=== PATIENT | female | born 1995 | race Caucasian/White ===

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

== ENCOUNTER 2017-03-04 22:13 | Emergency (ER) | payer BC ==
[~2017-03-04] VITALS: Ht 162.6 cm; Wt 55.7 kg
[~2017-03-04 22:13] MED LIST changes: -ALBINS/ INH; -CEPH500C PO; -IBUP-1050 PO; -ONDA4TAB10 SL; -OXYC-57 PO
[2017-03-04 22:23] VITALS: BP 110/75; PULSE 67; TEMP 36.7; O2SAT 95; Ht 162.6 cm; Wt 55.7 kg
[2017-03-04] MEDS ORDERED: ONDANSETRON 4MG OD TAB PO STA (23:22)
--- NOTE | 2017-03-04 23:37 | EMERGENCY ROOM VISIT NOTE ---
History Report prepared by Ky: Shad Rizo Under the Supervision of: Dr. Celestino Chan D.O. First contact with patient: 22:26 Chief Complaint: ABDOMINAL PAIN Stated Complaint: ABD PAIN Nursing Triage Summary: Pt complains of left sided abominal pain. It started at 6pm. +nausea History of Present Illness The patient is a 21 year old female who presents to the Emergency Room with complaints of left flank and abdominal pain starting around 1800 tonight which resolved about 10 minutes ago. The patient rated her pain a 7.5/10 in severity. She states that eating and drinking made the pain worse. She states that she is nauseous, though she denies any vomiting, diarrhea, constipation, fevers, chills , vaginal discharge, and urinary symptoms. The patient states that her last period was a week ago, and she had two this month. She has a history of asthma and eczema. Source of History: patient Onset: 1800 Position: abdomen (left), other (left flank) Symptom Intensity: 7.5/10 Timing: resolved Associated Symptoms: + nausea, No fevers, No chills, No vomiting, No diarrhea, No urinary symptoms Review of Systems See HPI for pertinent positives & negatives. A total of 10 systems reviewed and were otherwise negative. Past Medical & Surgical Medical Problems: (1) Asthma (2) Pneumonia Social History Smoking Status: Never Smoker Drug Use: none Marital Status: single Housing Status: lives with family Occupation Status: student Current/Historical Medications Scheduled PRN Albuterol Sulf (Proventil 0.083% 2.5MG/3ML), 2.5 MG INH Q4H PRN for SOB/Wheezing Ibuprofen (Advil), 200-600 MG PO Q4H PRN for Pain or Fever Allergies Coded Allergies: Iodinated Diagnostic Agents (Verified Allergy, Severe, FATAL FAMILY HISTORY, 03/04/17) Nut Tree (Verified Allergy, Severe, ANAPHYLAXIS, 03/04/17) Physical Exam Vital Signs Date Time Temp Pulse Resp B/P (MAP) Pulse Ox O2 Delivery O2 Flow Rate FiO2 03/04/17 22:23 36.7 67 16 110/75 95 Room Air Physical Exam CONSTITUTIONAL/VITAL SIGNS: Reviewed / noted above. GENERAL: Non-toxic in appearance. INTEGUMENTARY: Warm, dry, and [place]. HEAD: Normocephalic. EYES: without scleral icterus or trauma. ENT/OROPHARYNX: clear and moist. LYMPHADENOPATHY/NECK: Is supple without lymphadenopathy or meningismus. RESPIRATORY: Lungs clear and equal. CARDIOVASCULAR: Regular rate and rhythm. GI/ABDOMEN: Soft and nontender. No organomegaly or pulsatile mass. No rebound or guarding. Normal bowel sounds. EXTREMITIES: Warm and well perfused. BACK: No CVA tenderness. NEUROLOGICAL: Intact without focal deficits. PSYCHIATRIC: normal affect. MUSCULOSKELETAL: Normally developed with good muscle tone. Medical Decision & Procedures Laboratory Results Test 03/04/17 23:24 Laboratory results as stated above per my review. Medications Administered Medications (Trade) Dose Ordered Sig/Tabitha Route Start Time Stop Time Status Last Admin Dose Admin Ondansetron HCl (Zofran Odt) 4 mg NOW STAT PO 03/04/17 23:22 03/04/17 23:24 DC 03/04/17 23:36 4 MG ED Course 2310: Previous medical records were reviewed. The patient was evaluated in room B12. A complete history and physical examination was performed. 2322: Zofran ODT 4mg PO 2338: On reevaluation, the patient is doing well. I discussed the results and findings with the patient. She verbalized agreement of the treatment plan. She was discharged home. Medical Decision Differential considered: pancreatitis, hepatitis, acute cholecystitis, AAA, UTI , pyelonephritis, kidney stones, appendicitis, diverticulitis, shingles, bowel obstruction, mesenteric ischemia, intussusception,hernia, ovarian torsion, ruptured ovarian cyst,ectopic , . This is a 21-year-old female who presents to the ED with a chief complaint of abdominal pain. The patient states that her abdominal pain started around 6 PM. It actually was in the left flank/left side the abdomen when it started. She stated that she cannot get herself comfortable. She was moving around writhing in pain. She states that it was 7 out of 10. About 10 minutes after arriving here, the patient states that [place] symptoms of pain completely resolved. She had a little residual nausea. Her exam was normal. Urine revealed trace leukocytes and trace protein. test was negative. The patient was told the results the test. Because her symptoms have resolved, the family and patient elected to go home at this point. They will return if necessary if symptoms return. Urine strainer sent with patient. Impression Primary Impression: Acute left flank pain Scribe Attestation The scribe's documentation has been prepared under my direction and personally reviewed by me in its entirety. I confirm that the note above accurately reflects all work, treatment, procedures, and medical decision making performed by me. Departure Information Dispostion Home / Self-Care Referrals Tony Grady M.D. (PCP) Forms HOME CARE DOCUMENTATION FORM, IMPORTANT VISIT INFORMATION Patient Instructions My [facility] Additional Instructions Follow-up with your doctor for further care and evaluation in 1-2 days. Return to the emergency department for worsening or new symptoms or any concerns. You have been examined and treated today on an emergency basis only. This is not a substitute for, or an effort to provide, complete comprehensive medical care. It is impossible to recognize and treat all injuries or illnesses in a single emergency department visit. It is therefore important that you follow up closely with your doctor. Call as soon as possible for an appointment. Strain urine for stone for next 24 hours.
[2017-03-05 00:08] LABS: URINE APPEARANCE CLEAR (CLEAR); URINE BILIRUBIN NEG (NEG); URINE COLOR YELLOW; URINE NITRITE NEG (NEG); URINE PH 6.5 (4.5-7.5); URINE SPECIFIC GRAVITY 1.025 (1.000-1.030); UROBILINOGEN NEG (NEG); ZZUR CULT IF INDIC CLEAN CATCH NO
[2017-03-05 00:18] LABS: MANUAL MICROSCOPIC REQUIRED? NO; REVIEW REQ? NO
== END 2017-03-04 23:48 | disposition home or self-care (01) ==
LOC: C.EDB 22:14
DX: R10.30 Lower abdominal pain, unspecified (principal); J45.909 Unspecified asthma, uncomplicated; Z91.018 Allergy to other foods; Z91.041 Radiographic dye allergy status

== ENCOUNTER 2017-03-08 19:16 | Emergency (ER) | payer BC ==
[~2017-03-08] VITALS: Ht 162.6 cm; Wt 56.2 kg
[2017-03-08 19:20] VITALS: TEMP 37.7; Ht 162.6 cm; Wt 56.2 kg
--- NOTE | 2017-03-08 19:40 | EMERGENCY ROOM VISIT NOTE ---
History Report prepared by Ky: Tamika Cohn Under the Supervision of: Dr. Celestino Hodgson M.D. First contact with patient: 19:32 Chief Complaint: NAUSEA Stated Complaint: NAUSEA,SWEATS,CHILLS,ACHES History of Present Illness The patient is a 21 year old female who presents to the Emergency Room with complaints of persistent nausea for the past few days. She is accompanied by her Father. She reports she has felt nauseous for the past couple of days, but after class this afternoon she vomited several times. She also complains of pain in her bilateral flank area as well as lower abdominal pain and generalized body aches, rating her pain as a 5/10 in severity. She denies any recent hematuria or dysuria. She notes she has been experiencing the chills, diaphoresis and the patient is febrile on exam. She was seen here in the ED this past Saturday, 5 days ago, for flank pain and was diagnosed with a kidney stone. 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 A total of 10 systems reviewed and were otherwise negative. Past Medical & Surgical Medical Problems: (1) Asthma (2) Pneumonia Social History Smoking Status: Never Smoker Alcohol Use: occasionally Drug Use: none Marital Status: single Housing Status: lives with family Occupation Status: student Current/Historical Medications Scheduled Cephalexin Monohydrate (Keflex), 1 CAP PO BID Ondasetron Odt (Zofran Odt), 4 MG SL Q6H Scheduled PRN Albuterol Sulf (Proventil 0.083% 2.5MG/3ML), 2.5 MG INH Q4H PRN for SOB/Wheezing Ibuprofen (Advil), 200-600 MG PO Q4H PRN for Pain or Fever Oxycodone/Acetaminophen 5MG/325MG (Percocet 5MG/325MG), 1-2 TAB PO Q4H PRN for Pain Allergies Coded Allergies: Iodinated Diagnostic Agents (Verified Allergy, Severe, FATAL FAMILY HISTORY, 03/04/17) Nut Tree (Verified Allergy, Severe, ANAPHYLAXIS, 9/18/17) Physical Exam Vital Signs Date Time Temp Pulse Resp B/P (MAP) Pulse Ox O2 Delivery O2 Flow Rate FiO2 03/08/17 22:47 104 18 100/61 100 Room Air 03/08/17 20:52 96 18 91/47 98 Room Air 03/08/17 20:01 105 03/08/17 19:20 37.7 126 18 114/78 99 Room Air Physical Exam GENERAL: Patient is a healthy-appearing well-nourished 21 year old female. HEAD: Normocephalic atraumatic EYES: Ocular movements intact pupils equal and react to light OROPHARYNX mucous membranes are moist no exudates present no erythema or edema present NECK: Supple no nuchal rigidity CHEST: Good equal expansion LUNGS: Clear and equal to auscultation CARDIAC: Normal S1 and S2 ABDOMEN: Soft, tender in the RLQ, no guarding BACK: No CVA tenderness EXTREMITIES: No pain upon palpation normal muscle strength in all groups no clubbing cyanosis or edema NEURO: Patient is following commands is answering questions appropriately. Alert and oriented x3 Cranial Nerves 2-12 grossly intact Medical Decision & Procedures ER Provider Diagnostic Interpretation: Radiology results as stated below per my review and radiologist interpretation: CHEST ONE VIEW PORTABLE CLINICAL HISTORY: Pt c/o SOB dyspnea COMPARISON STUDY: 03/15/2014 FINDINGS: The bones soft tissues and hemidiaphragms are normal. The cardiomediastinal silhouette is normal. The lungs are clear. The pulmonary vasculature is normal. IMPRESSION: Negative chest. The above report was generated using voice recognition software. It may contain grammatical, syntax or spelling errors. Electronically signed by: Kameron Quinn M.D. 03/08/2017 8:20 PM ABDOMEN LIMITED (US) HISTORY: Pain Pt c/o RLQ abd pain, r/o appendicitis. COMPARISON: None. FINDINGS: Nonvisualization of the appendix. No evidence for collection or abscess bile sent criteria IMPRESSION: The appendix is not identified. The above report was generated using voice recognition software. It may contain grammatical, syntax or spelling errors. Electronically signed by: Kameron Quinn M.D. 03/08/2017 8:58 PM (RENAL)RETROPERITONEA COMP HISTORY: Flank pain Pt c/o RT sided flank pain COMPARISON: None. FINDINGS: Right kidney: Maximum dimension 9.7 cm. No evidence for hydronephrosis. Normal corticomedullary differentiation and cortical thickness. 3 mm nonobstructing cortical calcification Left kidney: Maximum dimension 10.0 cm. No evidence for hydronephrosis. Normal corticomedullary differentiation and cortical thickness. Bladder: No bladder wall thickening. The bilateral ureteral jets were identified. IMPRESSION: Normal renal ultrasound. 3 mm nonobstructing right renal cortical calcification The above report was generated using voice recognition software. It may contain grammatical, syntax or spelling errors. Electronically signed by: Kameron Quinn M.D. 03/08/2017 8:59 PM PELVIC COMPLETE NON OB CLINICAL HISTORY: Pt c/o B/l ovarian pain PAIN COMPARISON STUDY: FINDINGS: The uterus measured 6.8 cm. The endometrial stripe measured 8 mm. The right ovary measured 4.0 cm with normal vascular flow. The left ovary measured 4.2 cm with normal vascular flow. 2.5 cm ovarian cyst.. There is no ultrasonographic evidence of ovarian torsion. It should be noted that ovarian torsion can be present with normal Doppler ultrasonographic findings. There was no evidence of pathologic free pelvic fluid. IMPRESSION: 2.5 cm left ovarian cyst. Otherwise negative pelvic ultrasound The above report was generated using voice recognition software. It may contain grammatical, syntax or spelling errors. Electronically signed by: Kameron Quinn M.D. 03/08/2017 9:57 PM Laboratory Results 03/08/17 19:54 Red Blood Count 4.91, Mean Corpuscular Volume 88.8, Mean Corpuscular Hemoglobin 31.2, Mean Corpuscular Hemoglobin Concent 35.1, Mean Platelet Volume 9.7, Neutrophils (%) (Auto) 89.4, Lymphocytes (%) (Auto) 5.5, Monocytes (%) (Auto) 3.3, Eosinophils (%) (Auto) 1.5, Basophils (%) (Auto) 0.1, Neutrophils # (Auto) 8.38, Lymphocytes # (Auto) 0.52, Monocytes # (Auto) 0.31, Eosinophils # (Auto) 0.14, Basophils # (Auto) 0.01 03/08/17 19:54 Test 03/08/17 19:50 03/08/17 19:54 03/08/17 20:55 Influenza Type A (RT-PCR) Neg for Influ A (NEG) Influenza Type A Antigen Neg for Influ A (NEG) Influenza Type B Antigen Neg for Influ B (NEG) Influenza Type B (RT-PCR) Neg for Influ B (NEG) White Blood Count 9.38 K/uL (4.8-10.8) Red Blood Count 4.91 M/uL (4.2-5.4) Hemoglobin 15.3 g/dL (12.0-16.0) Hematocrit 43.6 % (37-47) Mean Corpuscular Volume 88.8 fL (80-100) Mean Corpuscular Hemoglobin 31.2 pg (25-34) Mean Corpuscular Hemoglobin Concent 35.1 g/dl (32-36) Platelet Count 236 K/uL (130-400) Mean Platelet Volume 9.7 fL (7.4-10.4) Neutrophils (%) (Auto) 89.4 % Lymphocytes (%) (Auto) 5.5 % Monocytes (%) (Auto) 3.3 % Eosinophils (%) (Auto) 1.5 % Basophils (%) (Auto) 0.1 % Neutrophils # (Auto) 8.38 K/uL (1.4-6.5) Lymphocytes # (Auto) 0.52 K/uL (1.2-3.4) Monocytes # (Auto) 0.31 K/uL (0.11-0.59) Eosinophils # (Auto) 0.14 K/uL (0-0.5) Basophils # (Auto) 0.01 K/uL (0-0.2) RDW Standard Deviation 39.7 fL (36.4-46.3) RDW Coefficient of Variation 12.5 % (11.5-14.5) Immature Granulocyte % (Auto) 0.2 % Immature Granulocyte # (Auto) 0.02 K/uL (0.00-0.02) Anion Gap 7.0 mmol/L (3-11) Est Creatinine Clear Calc Drug Dose 104.2 ml/min Estimated GFR () 133.9 Estimated GFR (Non- 115.6 BUN/Creatinine Ratio 14.2 (10-20) Calcium Level 9.2 mg/dl (8.5-10.1) Total Bilirubin 0.4 mg/dl (0.2-1) Direct Bilirubin < 0.1 mg/dl (0-0.2) Aspartate Amino Transf (AST/SGOT) 15 U/L (15-37) Alanine Aminotransferase (ALT/SGPT) 18 U/L (12-78) Alkaline Phosphatase 52 U/L (45-117) Total Protein 8.5 gm/dl (6.4-8.2) Albumin 4.3 gm/dl (3.4-5.0) Lipase 140 U/L (73-393) Monoscreen NEG (NEG) Urine Color DK YELLOW Urine Appearance CLOUDY (CLEAR) Urine pH 5.5 (4.5-7.5) Urine Specific [place] 1.028 (1.000-1.030) Urine Protein NEG (NEG) Urine Glucose (UA) NEG (NEG) Urine Ketones TRACE (NEG) Urine Occult Blood NEG (NEG) Urine Nitrite NEG (NEG) Urine Bilirubin NEG (NEG) Urine Urobilinogen NEG (NEG) Urine Leukocyte Esterase SMALL (NEG) Urine WBC (Auto) 10-30 /hpf (0-5) Urine RBC (Auto) 0-4 /hpf (0-4) Urine Hyaline Casts (Auto) 1-5 /lpf (0-5) Urine Epithelial Cells (Auto) >30 /lpf (0-5) Urine Bacteria (Auto) 2+ (NEG) Urine Test NEG (NEG) Labs reviewed by ED physician. Medications Administered Medications (Trade) Dose Ordered Sig/Tabitha Route Start Time Stop Time Status Last Admin Dose Admin Ketorolac Tromethamine (Toradol Inj) 30 mg NOW STAT IV 03/08/17 19:41 03/08/17 19:42 DC 03/08/17 19:58 30 MG Sodium Chloride 1,000 ml @ 999 mls/hr Q1H1M STAT IV 03/08/17 19:41 03/08/17 20:41 DC 03/08/17 19:57 999 MLS/HR Metoclopramide HCl (Reglan Inj) 10 mg NOW STAT IV 03/08/17 19:41 03/08/17 19:42 DC 03/08/17 19:58 10 MG Ceftriaxone Sodium (Rocephin Inj) 1 gm NOW STAT IV 03/08/17 21:25 03/08/17 21:26 DC 03/08/17 22:15 1 GM Cephalexin Monohydrate (Keflex 500MG Home Pack) 1 homepack NOW ONCE PO 03/08/17 22:45 03/08/17 22:46 DC 03/08/17 22:56 1 HOMEPACK Oxycodone/ Acetaminophen (Percocet 5/ 325MG Home Pack) 1 homepack UD STAT PO 03/08/17 22:37 03/08/17 22:39 DC 03/08/17 22:55 1 HOMEPACK Ondansetron HCl (ZOFRAN ODT 4MG Home Pack) 1 homepack UD STAT PO 03/08/17 22:37 03/08/17 22:39 DC 03/08/17 22:55 1 HOMEPACK ED Course 1932: Past medical records reviewed. The patient was evaluated in room C10. A complete history and physical examination was performed. 1940: Reglan 10 mg IV, NSS 1000 ml @ 999 mls/hr IV, Toradol 30 mg IV. 2114: I reevaluated the patient. She is resting comfortably. 2124: Rocephin 1 gm IV. 2219: I reevaluated the patient. She is feeling much better. I discussed her results and discharge instructions and she verbalized complete understanding and agreement. 2236: Zofran 4 mg 1 homepack PO, Percocet 5/325 mg 1 homepack PO. 2245: Keflex 500 mg 1 homepack PO. Medical Decision Prior records/ancillary studies reviewed. Triage Nursing notes reviewed. The patient's history was concerning for nausea, vomiting, diarrhea, and abdominal pain. Differential diagnosis: Etiologies such as gastroenteritis, food borne illness, infections, appendicitis , diverticulitis, inflammatory bowel disease, obstruction, GI bleed, biliary pathology, as well as others were entertained. This is a 21-year-old female who presents emergency department complaining of abdominal pain. The patient was recently evaluated in the emergency department for similar complaint. The patient noted that as soon as her pain ended she did not get any testing done here in the emergency department. Currently she is complaining of abdominal pain as well as nausea. Based on the patient's complaints an IV was established, patient given normal saline bolus, Toradol, Compazine, Benadryl. The patient is refusing a CAT scan even though using shared medical decision making with both patient and the the parents I recommended due to the patient's tenderness in her right lower quadrant. She does however have an normal white blood cell count along with renal profile liver profile and lipase. She does appear to have a UTI therefore she was started on Rocephin. I will continue the patient on Keflex pending a urine culture. The patient was sent for an ultrasound of her kidneys which revealed a kidney stone. I stressed to the patient that she may have passed a kidney stone last week. She also has an ovarian cyst on her left ovary. She has no evidence of torsion on examination or on ultrasound. Based on all the above findings the patient wishes to go home. She will start a antibiotic for UTI. She was given pain medication. 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 Medication Reconcilliation Current Medication List: was personally reviewed by me Blood Pressure Screening Patient's blood pressure: Normal blood pressure Blood pressure disposition: Did not require urgent referral Impression Primary Impression: Ovarian cyst Additional Impression: UTI (urinary tract infection) Scribe Attestation The scribe's documentation has been prepared under my direction and personally reviewed by me in its entirety. I confirm that the note above accurately reflects all work, treatment, procedures, and medical decision making performed by me. Departure Information Dispostion Home / Self-Care Prescriptions Ondasetron Odt (ZOFRAN ODT) 4 Mg Tab 4 MG SL Q6H for Nausea, #6 TAB Prov: Celestino Hodgson MD 03/08/17 Cephalexin Monohydrate (Keflex) 500 Mg Cap 1 CAP PO BID for 7 Days, #14 CAP Prov: Celestino Hodgson MD 03/08/17 Oxycodone/Acetaminophen 5MG/325MG (PERCOCET 5MG/325MG) Tab 1-2 TAB PO Q4H Y for Pain, #14 TAB Prov: Celestino Hodgson MD 03/08/17 Referrals Tony Grady M.D. (PCP) Patient Instructions Cyst Ovarian About, Cyst Ovarian Tx, ED Stone Kidney Undescended No Sx, ED UTI Cystitis Female, Kidney Stones Expectant Therapy, Kidney Stones Identify, Kidney Stones Prevent, Kidney Stones Risk, My [facility] Additional Instructions Follow up with Dr Delong's office for Ovarian cyst You received narcotic or benzodiazepene medication while in the emergency room today. This is an addictive medication that may cause drowziness as well as constipation. Do not drive, operate heavy machinery, or drink alcohol under the influence of this medication. Take 600 mg Ibuprofen every 6 hours Take Percocet for breakthrough pain Culture results are usually available in approx 48 hours You have been examined and treated today on an emergency basis only. This is not a substitute for, or an effort to provide, complete comprehensive medical care. It is impossible to recognize and treat all injuries or illnesses in a single emergency department visit. It is therefore important that you follow up closely with Dr Grady. Call as soon as possible for an appointment. Thank you for your time and consideration. I look forward to speaking with you again soon. Please don't hesitate to call us if you have any questions. Problem Qualifiers Primary Impression: Ovarian cyst Laterality: left Qualified Codes: N83.202 - Unspecified ovarian cyst, left side Additional Impression: UTI (urinary tract infection) Urinary tract infection type: acute cystitis Hematuria presence: without hematuria Qualified Codes: N30.00 - Acute cystitis without hematuria
[2017-03-08] MEDS ORDERED: KETOROLAC TROMETHAMINE 30 MG/ML VIAL IV STA (19:41)
[2017-03-08] MEDS ORDERED: METOCLOPRAMIDE HCL INJ 5 MG/ML 2 ML VIAL IV STA (19:41)
[2017-03-08] MEDS ORDERED: SODIUM CHLORIDE 0.9% 1000ML 1,000 ML IV STA (19:41)
[2017-03-08 20:18] LABS: BASO % 0.1 %; BASO ABS # 0.01 K/uL (0-0.2); COMPLETE YES; EOS % 1.5 %; HEMATOCRIT 43.6 % (37-47); IG% 0.2 %; LYMPH % 5.5 %; LYMPH ABS # 0.52 K/uL (1.2-3.4); MEAN CELL VOLUME 88.8 fL (80-100); MEAN CORPUSCULAR HEMOGLOBIN 31.2 pg (25-34); MEAN CORPUSCULAR HGB CONC 35.1 g/dl (32-36); MEAN PLATELET VOLUME 9.7 fL (7.4-10.4); MONO % 3.3 %; NEUT % 89.4 %; PLATELET COUNT 236 K/uL (130-400); RED BLOOD COUNT 4.91 M/uL (4.2-5.4); WHITE BLOOD COUNT 9.38 K/uL (4.8-10.8)
--- NOTE | 2017-03-08 20:21 | DIAGNOSTIC IMAGING REPORT ---
CHEST ONE VIEW PORTABLE CLINICAL HISTORY: Pt c/o SOB dyspnea COMPARISON STUDY: 03/15/2014 FINDINGS: The bones soft tissues and hemidiaphragms are normal. The cardiomediastinal silhouette is normal. The lungs are clear. The pulmonary vasculature is normal. IMPRESSION: Negative chest. The above report was generated using voice recognition software. It may contain grammatical, syntax or spelling errors. Electronically signed by: Kameron Quinn M.D. 03/08/2017 8:20 PM Dictated Date/Time: 03/08/2017 8:20 PM
[2017-03-08 20:40] LABS: ALT/SGPT 18 U/L (12-78); AST/SGOT 15 U/L (15-37); BLOOD UREA NITROGEN 11 mg/dl (7-18); BUN/CREATININE RATIO 14.2 (10-20); CALCIUM 9.2 mg/dl (8.5-10.1); CARBON DIOXIDE 24 mmol/L (21-32); CHLORIDE 106 mmol/L (98-107); CREATININE 0.75 mg/dl (0.60-1.20); GLUCOSE 100 mg/dl (70-99); POTASSIUM 3.9 mmol/L (3.5-5.1); SODIUM 137 mmol/L (136-145)
[2017-03-08 20:42] LABS: ALKALINE PHOSPHATASE 52 U/L (45-117)
--- NOTE | 2017-03-08 21:00 | DIAGNOSTIC IMAGING REPORT ---
ABDOMEN LIMITED (US) HISTORY: Pain Pt c/o RLQ abd pain, r/o appendicitis. COMPARISON: None. FINDINGS: Nonvisualization of the appendix. No evidence for collection or abscess bile sent criteria IMPRESSION: The appendix is not identified. The above report was generated using voice recognition software. It may contain grammatical, syntax or spelling errors. Electronically signed by: Kameron Quinn M.D. 03/08/2017 8:58 PM Dictated Date/Time: 03/08/2017 8:57 PM
--- NOTE | 2017-03-08 21:01 | DIAGNOSTIC IMAGING REPORT ---
(RENAL)RETROPERITONEA COMP HISTORY: Flank pain Pt c/o RT sided flank pain COMPARISON: None. FINDINGS: Right kidney: Maximum dimension 9.7 cm. No evidence for hydronephrosis. Normal corticomedullary differentiation and cortical thickness. 3 mm nonobstructing cortical calcification Left kidney: Maximum dimension 10.0 cm. No evidence for hydronephrosis. Normal corticomedullary differentiation and cortical thickness. Bladder: No bladder wall thickening. The bilateral ureteral jets were identified. IMPRESSION: Normal renal ultrasound. 3 mm nonobstructing right renal cortical calcification The above report was generated using voice recognition software. It may contain grammatical, syntax or spelling errors. Electronically signed by: Kameron Quinn M.D. 03/08/2017 8:59 PM Dictated Date/Time: 03/08/2017 8:59 PM
[2017-03-08 21:10] LABS: URINE APPEARANCE CLOUDY (CLEAR); URINE BILIRUBIN NEG (NEG); URINE COLOR DK YELLOW; URINE EPITHELIAL CELL AUTO >30 /lpf (0-5); URINE NITRITE NEG (NEG); URINE PH 5.5 (4.5-7.5); URINE SPECIFIC GRAVITY 1.028 (1.000-1.030); UROBILINOGEN NEG (NEG)
[2017-03-08 21:14] LABS: MANUAL MICROSCOPIC REQUIRED? NO; REVIEW REQ? NO
[2017-03-08] MEDS ORDERED: CEFTRIAXONE SOD INJ 1 GM ADDVIAL IV STA (21:25)
[2017-03-08 21:47] LABS: INFLUENZA A PCR Neg for Influ A (NEG); INFLUENZA B PCR Neg for Influ B (NEG)
--- NOTE | 2017-03-08 21:59 | DIAGNOSTIC IMAGING REPORT ---
PELVIC COMPLETE NON OB CLINICAL HISTORY: Pt c/o B/l ovarian pain PAIN COMPARISON STUDY: FINDINGS: The uterus measured 6.8 cm. The endometrial stripe measured 8 mm. The right ovary measured 4.0 cm with normal vascular flow. The left ovary measured 4.2 cm with normal vascular flow. 2.5 cm ovarian cyst.. There is no ultrasonographic evidence of ovarian torsion. It should be noted that ovarian torsion can be present with normal Doppler ultrasonographic findings. There was no evidence of pathologic free pelvic fluid. IMPRESSION: 2.5 cm left ovarian cyst. Otherwise negative pelvic ultrasound The above report was generated using voice recognition software. It may contain grammatical, syntax or spelling errors. Electronically signed by: Kameron Quinn M.D. 03/08/2017 9:57 PM Dictated Date/Time: 03/08/2017 9:56 PM
[2017-03-08] MEDS ORDERED: CEPH500C PO (22:36)
[2017-03-08] MEDS ORDERED: OXYC-57 PO (22:36)
[2017-03-08] MEDS ORDERED: ONDA4TAB10 SL (22:36)
[2017-03-08] MEDS ORDERED: PERCOCET HOME PACK PO STA (22:37)
[2017-03-08] MEDS ORDERED: ONDANSETRON HOME PACK 4MG OD TAB PO STA (22:37)
[2017-03-08] MEDS ORDERED: CEPHALEXIN 500MG HOME PACK 1 EA BTL PO ONE (22:45)
[2017-03-08 22:47] VITALS: BP 100/61; PULSE 104; O2SAT 100
[2017-03-08] MEDS ORDERED: IBUP-1050 PO (23:19)
[2017-03-08] MEDS ORDERED: ALBINS/ INH (23:19)
[2017-03-11 15:45] LABS: EBV EARLY ANTIGEN AB <9.00 U/ML
== END 2017-03-08 23:00 | disposition home or self-care (01) ==
LOC: C.EDB 19:17 → C.EDC 23:00
DX: N83.202 Unspecified ovarian cyst, left side (principal); N30.00 Acute cystitis without hematuria; J45.909 Unspecified asthma, uncomplicated; Z87.01 Personal history of pneumonia (recurrent)